=== PATIENT | female | born 1945 | race Two or more races ===

== ENCOUNTER 2016-04-27 08:25 | Day surgery (SDC) | payer OTHER ==
[2016-04-27] MEDS ORDERED: LACTATED RINGERS 1,000 ML ONE (08:58)
[2016-04-27] MEDS ORDERED: IV START KIT ONE (08:58)
[2016-04-27] MEDS ORDERED: MIDAZOLAM HCL 5 MG/5 ML VIAL ONE (09:21)
[2016-04-27] MEDS ORDERED: FENTANYL 5 ML ONE (09:22)
== END 2016-04-27 12:20 | disposition home or self-care (01) ==
LOC: SDC 08:25
PROVIDERS: ATTEND Internal Medicine Gastroenterology
PROC: 0DJD8ZZ Inspection of Lower Intestinal Tract, Via Natural or Artificial Opening Endoscopic (ICD-10-PCS; principal; 2016-04-27)
DX: K64.1 Second degree hemorrhoids (principal); K59.8 Other specified functional intestinal disorders; K63.89 Other specified diseases of intestine; I10 Essential (primary) hypertension; G47.00 Insomnia, unspecified; N32.81 Overactive bladder; Z88.8 Allergy status to other drugs, medicaments and biological substances
CPT/HCPCS: 45378; J3010; J2250; J7120